=== PATIENT | female | born 1950 | race Two or more races ===

== ENCOUNTER 2020-06-11 22:17 | Inpatient (IN) | payer MEDICARE, MEDICAID ==
[~2020-06-11] VITALS: Ht 152.4 cm; Wt 67.5 kg
[2020-06-11 23:58] LABS: Basophils # (auto) 0.1 10 ^3/uL (0-0.2); Basophils % (auto) 1.2 % (0.0-2.0); Eosinophils # (auto) 0.5 10 ^3/uL (0-0.8); Eosinophils % (auto) 4.1 % (0.0-7.0); Hematocrit 38.4 % (36.0-46.0); Hemoglobin 12.5 g/dL (12.2-16.2); Lymphocytes # (auto) 3.2 10 ^3/uL (0.4-5.4); Lymphocytes % (auto) 26.7 % (10.0-50.0); Mean Corpuscular Hemoglobin 29.9 pg (28.0-32.0); Mean Corpuscular Hgb Conc. 32.5 g/dL (32.0-36.0); Mean Corpuscular Volume 91.8 fL (80.0-100.0); Monocytes # (auto) 0.8 10 ^3/uL (0-1.3); Monocytes % (auto) 6.4 % (0.0-12.0); Neutrophils # (auto) 7.4 10 ^3/uL (1.6-8.6); Neutrophils % (auto) 61.6 % (37.0-80.0); Platelet Count (auto) 281 10^3/uL (140-450); Red Blood Cells 4.18 10^6/uL (4.0-5.20); Red Cell Distribution Width 13.5 % (11.8-14.3)
[2020-06-12 00:16] LABS: Partial Thromboplastin Time 26.7 sec (23.0-31.2)
[2020-06-12 00:20] LABS: Albumin 3.2 g/dL (3.4-5.0); Calcium 8.5 mg/dL (8.5-10.1); Magnesium 2.1 mg/dL (1.6-2.6); Potassium 4.4 mmol/L (3.5-5.1)
[2020-06-12 00:25] LABS: Bilirubin, Total 0.3 mg/dL (0.2-1.0); Total Protein 8.7 g/dL (6.4-8.2)
[2020-06-12] MEDS ORDERED: ASPirin 325 MG TAB PO ONE (01:00)
[2020-06-12] MEDS ORDERED: ENOXAPARIN SOD 100 MG/1 ML SYRINGE SC ONE (01:15)
[2020-06-12 01:34] LABS: Urine Bacteria MANY /hpf (None Seen); Urine Blood Negative /uL (Negative); Urine Hyaline Cast FEW /lpf (0 - 2); Urine Specific Gravity 1.012 (1.001-1.035); Urine WBC 20 /hpf (0 - 5)
[2020-06-12] MEDS ORDERED: DOCUSATE SOD 100 MG CAP PO PRN (05:45)
[2020-06-12] MEDS ORDERED: HYDROcodone-ACET 5/325MG TAB PO PRN (05:45)
[2020-06-12] MEDS ORDERED: ACETAMINOPHEN 325 MG TAB PO PRN (05:45)
[2020-06-12] MEDS ORDERED: ONDANSETRON HCL 4 MG/2 ML VIAL IV PRN (05:45)
[2020-06-12] MEDS ORDERED: DEXTROSE (50%) 50ML SYRG IV PRN (05:45)
[2020-06-12] MEDS ORDERED: MORPHINE SULF INJ 2 MG/ML SYRINGE 1ML IV PRN (05:45)
[2020-06-12] MEDS ORDERED: NITROGLYCERIN 0.4 MG SL TAB SL PRN (05:45)
[2020-06-12] MEDS ORDERED: ALBUTEROL SULF HFA 90MCG INH 200DOSE IN SCH (06:00)
[2020-06-12] MEDS: SODIUM CHLOR 0.9% PF (SALINE LOCK) 10ML VIAL/SYR IV SCH ×3 (06:00→22:25)
[2020-06-12] MEDS: DOXYCYCLINE 100MG/250ML 250 ML IV SCH (06:10)
[2020-06-12 06:50] VITALS: BP 118/27
[2020-06-12] MEDS: InsuLIN REG 1unit/0.01ml Soln (100units/ml) SC SCH ×4 (06:59→22:24)
[2020-06-12] MEDS: INSULIN LANTUS (GLARGINE) 1 /0.01ml (100units/ml) SC SCH ×2 (07:00→22:24)
[2020-06-12 07:08] LABS: Basophils # (auto) 0.1 10 ^3/uL (0-0.2); Basophils % (auto) 0.9 % (0.0-2.0); Eosinophils # (auto) 0.6 10 ^3/uL (0-0.8); Eosinophils % (auto) 5.4 % (0.0-7.0); Hematocrit 35.2 % (36.0-46.0); Hemoglobin 11.7 g/dL (12.2-16.2); Lymphocytes # (auto) 4.4 10 ^3/uL (0.4-5.4); Lymphocytes % (auto) 39.1 % (10.0-50.0); Mean Corpuscular Hemoglobin 30.2 pg (28.0-32.0); Mean Corpuscular Hgb Conc. 33.3 g/dL (32.0-36.0); Mean Corpuscular Volume 90.9 fL (80.0-100.0); Monocytes # (auto) 0.9 10 ^3/uL (0-1.3); Monocytes % (auto) 7.9 % (0.0-12.0); Neutrophils # (auto) 5.3 10 ^3/uL (1.6-8.6); Neutrophils % (auto) 46.7 % (37.0-80.0); Nucleated Red Blood Cells % 0.1 %; Platelet Count (auto) 268 10^3/uL (140-450); Red Blood Cells 3.87 10^6/uL (4.0-5.20); Red Cell Distribution Width 13.6 % (11.8-14.3); White Blood Cell 11.4 10^3/uL (4.4-10.8)
[2020-06-12] MEDS: ACCU-CHEK COMFORT CURVE STRIP VI SCH ×4 (07:10→22:26)
[2020-06-12 07:42] LABS: Albumin 3.1 g/dL (3.4-5.0); Calcium 8.7 mg/dL (8.5-10.1)
[2020-06-12 07:45] LABS: BUN/Creatinine Ratio 27.6; Bilirubin, Total 0.4 mg/dL (0.2-1.0); Cholesterol 134 mg/dL (< 200); Total Protein 7.9 g/dL (6.4-8.2)
[2020-06-12 07:48] LABS: HDL Cholesterol 40 mg/dL (40-59); LDL Cholesterol 82 mg/dL (< 100); Triglycerides 117 mg/dL (< 150)
[2020-06-12] MEDS ORDERED: HEPARIN SODIUM (PORCINE) 5000 UNITS/ML 1ML VIAL SC SCH (10:00)
[2020-06-12] MEDS: MULTIPLE VITAMIN TAB PO SCH (10:34)
[2020-06-12] MEDS: FAMOTIDINE (10MG/ML) 2ML VL IV SCH ×2 (10:34→22:25)
[2020-06-12] MEDS: ZINC SULFATE 220mg CAP or TAB PO SCH (10:34)
[2020-06-12] MEDS: ASCORBIC ACID 500 MG TAB PO SCH ×2 (10:34→22:25)
[2020-06-12] MEDS: cefTRIAXone 1GM/50ML D5W 50 ML IV SCH (10:35)
[2020-06-12] MEDS: ASPirin 81 mg TAB PO SCH (10:35)
[2020-06-12 12:00] VITALS: BP 144/69
[2020-06-12] MEDS: ENOXAPARIN SOD 60 MG/0.6 ML SYRINGE SC SCH ×2 (13:43→22:25)
[2020-06-12] MEDS: SODIUM CHLORIDE 0.9% 1,000 ML IV SCH (14:15)
[2020-06-12 22:00] VITALS: BP 143/77
[2020-06-12] MEDS: ATORVASTATIN 20 MG TAB PO SCH (22:25)
[2020-06-13 05:00] VITALS: BP 103/49
[2020-06-13] MEDS: DOXYCYCLINE 100MG/250ML 250 ML IV SCH ×2 (05:20→17:25)
[2020-06-13] MEDS: SODIUM CHLOR 0.9% PF (SALINE LOCK) 10ML VIAL/SYR IV SCH ×3 (05:25→21:17)
[2020-06-13 06:10] LABS: Basophils # (auto) 0.1 10 ^3/uL (0-0.2); Basophils % (auto) 0.8 % (0.0-2.0); Eosinophils # (auto) 0.7 10 ^3/uL (0-0.8); Eosinophils % (auto) 4.9 % (0.0-7.0); Hematocrit 36.2 % (36.0-46.0); Hemoglobin 12.4 g/dL (12.2-16.2); Lymphocytes # (auto) 3.8 10 ^3/uL (0.4-5.4); Lymphocytes % (auto) 26.6 % (10.0-50.0); Mean Corpuscular Hemoglobin 31.1 pg (28.0-32.0); Mean Corpuscular Hgb Conc. 34.3 g/dL (32.0-36.0); Mean Corpuscular Volume 90.6 fL (80.0-100.0); Neutrophils # (auto) 8.6 10 ^3/uL (1.6-8.6); Neutrophils % (auto) 60.7 % (37.0-80.0); Platelet Count (auto) 271 10^3/uL (140-450); Red Cell Distribution Width 13.5 % (11.8-14.3); White Blood Cell 14.2 10^3/uL (4.4-10.8)
[2020-06-13] MEDS: SODIUM CHLORIDE 0.9% 1,000 ML IV SCH (06:14)
[2020-06-13] MEDS: InsuLIN REG 1unit/0.01ml Soln (100units/ml) SC SCH ×4 (06:15→21:29)
[2020-06-13] MEDS: INSULIN LANTUS (GLARGINE) 1 /0.01ml (100units/ml) SC SCH ×2 (06:15→21:29)
[2020-06-13] MEDS: ACCU-CHEK COMFORT CURVE STRIP VI SCH ×4 (06:16→21:18)
[2020-06-13 06:29] LABS: Potassium 3.7 mmol/L (3.5-5.1)
[2020-06-13 06:32] LABS: BUN/Creatinine Ratio 23.7; Bilirubin, Total 0.6 mg/dL (0.2-1.0); Total Protein 7.9 g/dL (6.4-8.2)
[2020-06-13] MEDS: ALBUTEROL SULF 2.5 MG/0.5ML(0.5%) NEB SOLN NEB PRN (08:18)
[2020-06-13 08:40] VITALS: BP 92/55
[2020-06-13] MEDS: cefTRIAXone 1GM/50ML D5W 50 ML IV SCH (09:31)
[2020-06-13] MEDS: ASPirin 81 mg TAB PO SCH (09:31)
[2020-06-13] MEDS: FAMOTIDINE (10MG/ML) 2ML VL IV SCH ×2 (09:31→21:17)
[2020-06-13] MEDS: ENOXAPARIN SOD 60 MG/0.6 ML SYRINGE SC SCH ×2 (09:32→21:18)
[2020-06-13] MEDS: MULTIPLE VITAMIN TAB PO SCH (09:32)
[2020-06-13] MEDS: ASCORBIC ACID 500 MG TAB PO SCH ×2 (09:32→21:18)
[2020-06-13] MEDS: ZINC SULFATE 220mg CAP or TAB PO SCH (09:32)
[2020-06-13] MEDS ORDERED: IOHEXOL 350 MG/ML 100ML IJ ONE (09:49)
[2020-06-13 13:01] VITALS: BP 141/61
[2020-06-13 16:39] VITALS: BP 126/70
[2020-06-13] MEDS: ATORVASTATIN 20 MG TAB PO SCH (21:17)
[2020-06-13 22:00] VITALS: BP 115/65
[2020-06-14] MEDS: SODIUM CHLORIDE 0.9% 1,000 ML IV SCH (00:02)
[2020-06-14 05:00] VITALS: BP 136/67
[2020-06-14] MEDS: SODIUM CHLOR 0.9% PF (SALINE LOCK) 10ML VIAL/SYR IV SCH ×3 (06:04→21:26)
[2020-06-14] MEDS: DOXYCYCLINE 100MG/250ML 250 ML IV SCH (06:04)
[2020-06-14 06:08] LABS: Basophils # (auto) 0.1 10 ^3/uL (0-0.2); Basophils % (auto) 1.1 % (0.0-2.0); Eosinophils # (auto) 0.8 10 ^3/uL (0-0.8); Eosinophils % (auto) 7.4 % (0.0-7.0); Hematocrit 37.1 % (36.0-46.0); Hemoglobin 12.4 g/dL (12.2-16.2); Lymphocytes # (auto) 4.3 10 ^3/uL (0.4-5.4); Lymphocytes % (auto) 39.8 % (10.0-50.0); Mean Corpuscular Hemoglobin 30.6 pg (28.0-32.0); Mean Corpuscular Hgb Conc. 33.6 g/dL (32.0-36.0); Mean Corpuscular Volume 91.2 fL (80.0-100.0); Monocytes # (auto) 0.7 10 ^3/uL (0-1.3); Monocytes % (auto) 6.6 % (0.0-12.0); Neutrophils # (auto) 4.9 10 ^3/uL (1.6-8.6); Neutrophils % (auto) 45.1 % (37.0-80.0); Nucleated Red Blood Cells % 0.1 %; Platelet Count (auto) 289 10^3/uL (140-450); Red Blood Cells 4.07 10^6/uL (4.0-5.20); Red Cell Distribution Width 13.5 % (11.8-14.3); White Blood Cell 10.9 10^3/uL (4.4-10.8)
[2020-06-14] MEDS: InsuLIN REG 1unit/0.01ml Soln (100units/ml) SC SCH ×4 (06:09→21:26)
[2020-06-14] MEDS: ACCU-CHEK COMFORT CURVE STRIP VI SCH ×4 (06:10→21:37)
[2020-06-14] MEDS: INSULIN LANTUS (GLARGINE) 1 /0.01ml (100units/ml) SC SCH ×2 (06:10→21:37)
[2020-06-14 06:27] LABS: Calcium 8.7 mg/dL (8.5-10.1); Potassium 3.9 mmol/L (3.5-5.1)
[2020-06-14 06:29] LABS: BUN/Creatinine Ratio 22.3
[2020-06-14 09:00] VITALS: BP 118/58
[2020-06-14] MEDS: cefTRIAXone 1GM/50ML D5W 50 ML IV SCH (09:55)
[2020-06-14] MEDS: FAMOTIDINE (10MG/ML) 2ML VL IV SCH ×2 (09:55→21:25)
[2020-06-14] MEDS: ASPirin 81 mg TAB PO SCH (09:56)
[2020-06-14] MEDS: ZINC SULFATE 220mg CAP or TAB PO SCH (09:56)
[2020-06-14] MEDS: MULTIPLE VITAMIN TAB PO SCH (09:57)
[2020-06-14] MEDS: ASCORBIC ACID 500 MG TAB PO SCH ×2 (09:57→21:26)
[2020-06-14] MEDS: ENOXAPARIN SOD 60 MG/0.6 ML SYRINGE SC SCH ×2 (09:57→21:26)
[2020-06-14] MEDS ORDERED: ADENOSINE 54 MG in GIVE UN-DILUTED 0 ML IV ONE (11:15)
[2020-06-14] MEDS: D5W/SOD CHL 0.45% 1,000 ML IV SCH (12:42)
[2020-06-14 12:55] VITALS: BP 115/69
[2020-06-14 13:00] VITALS: BP 112/61
[2020-06-14] MEDS: ALBUTEROL SULF 2.5 MG/0.5ML(0.5%) NEB SOLN NEB PRN (13:03)
[2020-06-14] MEDS ORDERED: ALBUTEROL SULF 2.5 MG/0.5ML(0.5%) NEB SOLN ONE (13:04)
[2020-06-14 17:00] VITALS: BP 130/63
[2020-06-14] MEDS: ATORVASTATIN 20 MG TAB PO SCH (21:26)
[2020-06-14 22:00] VITALS: BP 112/75
[2020-06-15] MEDS: D5W/SOD CHL 0.45% 1,000 ML IV SCH ×2 (00:55→14:53)
[2020-06-15 05:00] VITALS: BP 101/52
[2020-06-15] MEDS: ACCU-CHEK COMFORT CURVE STRIP VI SCH ×2 (06:18→11:22)
[2020-06-15] MEDS: InsuLIN REG 1unit/0.01ml Soln (100units/ml) SC SCH ×2 (06:18→11:33)
[2020-06-15] MEDS: SODIUM CHLOR 0.9% PF (SALINE LOCK) 10ML VIAL/SYR IV SCH ×2 (06:18→14:53)
[2020-06-15] MEDS: INSULIN LANTUS (GLARGINE) 1 /0.01ml (100units/ml) SC SCH (06:19)
[2020-06-15 07:34] LABS: BUN/Creatinine Ratio 23.5; Calcium 8.9 mg/dL (8.5-10.1); Potassium 3.7 mmol/L (3.5-5.1)
[2020-06-15 09:00] VITALS: BP 127/69
[2020-06-15] MEDS: ASPirin 81 mg TAB PO SCH (09:20)
[2020-06-15] MEDS: ZINC SULFATE 220mg CAP or TAB PO SCH (09:20)
[2020-06-15] MEDS: cefTRIAXone 1GM/50ML D5W 50 ML IV SCH (09:20)
[2020-06-15] MEDS: FAMOTIDINE (10MG/ML) 2ML VL IV SCH (09:20)
[2020-06-15] MEDS: ASCORBIC ACID 500 MG TAB PO SCH (09:21)
[2020-06-15] MEDS: ENOXAPARIN SOD 60 MG/0.6 ML SYRINGE SC SCH (09:21)
[2020-06-15] MEDS: MULTIPLE VITAMIN TAB PO SCH (09:21)
[2020-06-15 11:36] VITALS: BP 127/69
[2020-06-15 13:00] VITALS: BP 120/60
[2020-06-16] MEDS ORDERED: FAMOTIDINE (10MG/ML) 2ML VL IV SCH (10:00)
== END 2020-06-15 15:45 | disposition home or self-care (01) | DRG 871 ==
LOC: EDBD 22:17 → ER 22:20 → TELE 06-12 05:46 → TELE-WESTW 06-12 12:04
PROVIDERS: ADMIT Nurse Practitioner Family; ATTEND Internal Medicine
DX: A41.9 Sepsis, unspecified organism (principal); N17.0 Acute kidney failure with tubular necrosis; J96.01 Acute respiratory failure with hypoxia; I50.31 Acute diastolic (congestive) heart failure; N39.0 Urinary tract infection, site not specified; E11.65 Type 2 diabetes mellitus with hyperglycemia; J84.10 Pulmonary fibrosis, unspecified; Z20.822 Contact with and (suspected) exposure to COVID-19; Z79.4 Long term (current) use of insulin; Z82.49 Family history of ischemic heart disease and other diseases of the circulatory system; J44.9 Chronic obstructive pulmonary disease, unspecified; E78.5 Hyperlipidemia, unspecified; R79.89 Other specified abnormal findings of blood chemistry; I11.0 Hypertensive heart disease with heart failure
CPT/HCPCS: 36415; 70450; 71045; 71275; 78452; 80048; 80053; 80061; 81001; 82962; 83036; 83735; 83880; 84443; 84484; 85025; 85379; 85610; 85730; 87086; 93017; 93306; 93886; 94640; 96365; 96367; 97110; 97116; 97530; G0378; J0153; J0696; J1815; J3490